=== PATIENT | female | born 1950 | race Caucasian/White ===

== ENCOUNTER → 2017-02-11 | Outpatient (CLI) | payer MEDICARE, BC ==
[~2017-02-11] MED LIST: ADVIL200 MG PO; BENICAR40 MG PO; CARDI-OMEGA1000 MG PO; CHROMIUM PICOLI1 TAB PO; GLUCOSAMINE PO; LIPITOR 10MG10 MG PO; LOW DOSE ASPIRI81 MG PO; MAGNESIUM100 MG PO; METFORMIN500 MG PO; MULTIPLE VITAMI1 CAP PO; NATURAL E400 IU PO; NATURE'S BLEND1 T16 PO; VITAMIN C500 MG PO
== END ==
LOC: MC.RAD 13:40
DX: Z12.31 Encounter for screening mammogram for malignant neoplasm of breast (principal)

== ENCOUNTER → 2018-03-14 | Outpatient (CLI) | payer MEDICARE, BC | LOC: MC.RAD 11:20 | DX: Z12.31 Encounter for screening mammogram for malignant neoplasm of breast (principal) ==

== ENCOUNTER → 2019-04-17 | Outpatient (CLI) | payer MEDICARE, BC | LOC: MC.RAD 13:00 | DX: Z12.31 Encounter for screening mammogram for malignant neoplasm of breast (principal) ==

== ENCOUNTER → 2020-06-19 | Outpatient (CLI) | payer MEDICARE, BC | LOC: MC.RAD 06-05 14:30 | DX: Z12.31 Encounter for screening mammogram for malignant neoplasm of breast (principal) ==

== ENCOUNTER → 2021-07-09 | Outpatient (CLI) | payer MEDICARE, BC | LOC: MC.RAD 16:00 | DX: Z12.31 Encounter for screening mammogram for malignant neoplasm of breast (principal) ==